=== PATIENT | female | born 1985 | race American Indian/Alaskan Native ===

== ENCOUNTER 2017-01-06 12:02 | Emergency (ER) | payer BC ==
[2017-01-06] MEDS ORDERED: BENADRYL IV ONE (13:04)
[2017-01-06] MEDS ORDERED: VALIUM IV ONE (13:06)
[2017-01-06 13:24] LABS: Hematocrit 39.4 % (30.3-42.9); Hemoglobin 12.6 gm/dl (10.1-14.3); Mean Corpuscular HGB Conc 32 % (30-34); Mean Corpuscular Hemoglobin 29 pg (28-32); Mean Corpuscular Volume 90 fl (79-97); Platelet Count 319 K/mm3 (140-440); Red Cell Distribution Width 14.7 % (13.2-15.2); White Blood Count 8.5 K/mm3 (4.5-11.0)
[2017-01-06] MEDS ORDERED: KEPPRA 1,000 MG/NS 0.75% 100ML 1,000 MG/100 ML BAG IV ONE (13:30)
[2017-01-06 13:57] LABS: Anion Gap 18 mmol/L; BUN/Creatinine Ratio 6.66; Blood Urea Nitrogen 4 mg/dL (7-17); Calcium 8.9 mg/dL (8.4-10.2); Carbon Dioxide 27 mmol/L (22-30); Chloride 99.3 mmol/L (98-107); Glucose 109 mg/dL (65-100); Potassium 3.2 mmol/L (3.6-5.0); Sodium 141 mmol/L (137-145)
--- NOTE | 2017-01-06 14:03 | Emergency Department Report ---
HPI - General Chief Complaint: Seizure Time Seen by Provider: 01/06/17 13:34 - HPI HPI: The patient is a 31-year-old female who presents for evaluation of seizure and headache. The patient reports expressing a seizure at 1 AM this morning, greater than 8 hours prior to my evaluation. She also complains of headache for the past 3-4 hours, generalized, aching in quality, mild, currently 5 out of 10 in severity, exacerbated with bright lights and loud sounds. The patient denies fever, head injury, neck pain, neck stiffness, vision or hearing changes , smell or taste changes, paresthesias, facial drooping, slurred speech, urine or bowel incontinence or retention, or other focal neurological deficit. She shares that she has been out of her Keppra for 1 week due to need for prescription refill. ED Past Medical Hx - Past Medical History Previous Medical History?: Yes Hx Seizures: Yes (x's 5 years) - Surgical History Past Surgical History?: No - Social History Smoking Status: Never Smoker Substance Use Type: None - Medications Home Medications: Home Medications Medication Instructions Recorded Confirmed Last Taken Type levETIRAcetam [Keppra TAB] 1,000 mg PO BID #60 tablet 01/06/17 Unknown Rx ED Review of Systems ROS: Stated complaint: SEIZURES/SEVERE HEADACHE Other details as noted in HPI Constitutional: denies: fever ENT: denies: throat or neck pain Respiratory: denies: cough, shortness of breath Cardiovascular: denies: chest pain Endocrine: denies unexplained weight loss or gain Gastrointestinal: denies: abdominal pain, nausea Genitourinary: denies: dysuria Musculoskeletal: denies: leg swelling Skin: denies: rash Neurological: reports headache and seizure Hematological/Lymphatic: denies: easy bleeding or easy bruising Psych: denies sadness or hopelessness Physical Exam - Physical Exam Vital Signs: Vital Signs 01/06/17 01/06/17 12:12 12:57 Temperature 98.2 F Pulse Rate 71 Respiratory 18 16 Rate Blood Pressure 143/91 O2 Sat by Pulse 100 99 Oximetry Physical Exam: General: well-nourished, well-developed, no acute distress Head: Normocephalic, atraumatic Eyes: normal sclera, EOMI, PERRL ENT: Mucous membranes are pink and moist Neck: trachea midline, neck supple, No neck stiffness, no cervical adenopathy Respiratory: Breath sounds equal bilaterally, no wheezing, rales, or rhonchi Cardio: S1 and S2 present, no murmurs, rubs, gallops, capillary refill is brisk Abdomen: Normoactive bowel sounds, soft abdomen, no rigidity, no guarding or rebound tenderness Musc: No pitting edema Skin: No rash Neuro: Alert oriented 3, no facial drooping, normal speech, CN II through XII intact, no obvious gross sensation or motor deficit in the arms or legs, no coordination deficit with finger to nose testing, reflexes 2+ symmetric on DTR testing, no obvious gross neurodeficits Psych: Normal affect ED Course Vital Signs 01/06/17 01/06/17 12:12 12:57 Temperature 98.2 F Pulse Rate 71 Respiratory 18 16 Rate Blood Pressure 143/91 O2 Sat by Pulse 100 99 Oximetry ED Medical Decision Making - Lab Data Result diagrams: 01/06/17 13:12 01/06/17 13:12 - Medical Decision Making The patient was seen and examined by myself. The patient is placed on a nurse discharge and continuous pulse ox. On initial evaluation, the patient was found to be in no distress. As there are no neuro deficits or other findings on examination concerning for acute intracranial disease process, and as the patient states that symptoms are consistent with previous headaches, a CAT scan of the head will not be obtained at this time. The patient is given IV Valium for her pain. She is given 1 g of Keppra IV as well. Lab results are unremarkable. The patient was monitored in the emergency department for greater than 2 hours without any seizure-like activity, she was reevaluated and reported that her sypmtoms were resolved. The patient is stable for discharge with outpatient follow-up. The patient is given follow-up and return instructions. The patient expressed understanding and agreed with the plan. The patient is discharged in stable condition. Critical care attestation.: If time is entered above; I have spent that time in minutes in the direct care of this critically ill patient, excluding procedure time. ED Disposition Clinical Impression: Seizure Acute nonintractable headache Qualifiers: Headache type: unspecified Qualified Code(s): R51 - Headache Disposition: DISCHARGED TO HOME OR SELFCARE Is pt being admited?: No Does the pt Need Aspirin: No Condition: Stable Instructions: Epilepsy (ED), Acute Headache (ED) Prescriptions: levETIRAcetam [Keppra TAB] 1,000 mg PO BID #60 tablet Referrals: PRIMARY CARE, [Primary Care Provider] - 3-5 Days Forms: Work/School Release Form(ED) Time of Disposition: 13:58
[2017-01-06 15:29] VITALS: BP 143/73
== END 2017-01-06 15:29 | disposition home or self-care (01) ==
LOC: ED 12:02
DX: R56.9 Unspecified convulsions (principal); R51 Headache
CPT/HCPCS: 36415; 80048; 84703; 85027; 93005; 93010; 96365; 99284; J1953